=== PATIENT | female | born 1940 | race Caucasian/White ===

== ENCOUNTER 2018-01-16 21:53 | Emergency (ER) | payer MEDICARE, OTHER ==
--- NOTE | 2018-01-16 22:09 | Emergency Department Record ---
History of Present Illness - General Chief Complaint: General Stated Complaint: ALTERED SPEECH Time Seen by Provider: 01/16/18 21:54 Source: Patient Mode of Arrival: Ambulatory Limitations: No limitations - History of Present Illness Initial Comments: 77 yo female presents to ED for evaluation of slurred speech and difficulty writing her name. Patient denies extremity weakness globally, family member reports that her symptoms began just over 24 hours ago. Patient denies health problems at her baseline, however reports carotid endarectomy 2 years ago. Patient does not take any medications. Onset/Timin -: Hour(s) Location: Dysarthria, Right arm History of same: No Place: Home Severity: Moderate Improves With: None Worsens With: None On Anticoagulants: No Associated Symptoms: Denies other symptoms - [place] Coma Scale Eye Response: (4) Open spontaneously Motor Response: (6) Obeys commands Verbal Response: (5) Oriented [place] Total: 15 - Related Data Home Medications: Home Medications Medication Instructions Recorded Confirmed Last Taken No Home Med [NO HOME MEDS] 01/16/18 01/16/18 Unknown Allergies/Adverse Reactions: Allergies Allergy/AdvReac Type Severity Reaction Status Date / Time No Known Drug Allergies Allergy Verified 01/16/18 22:01 Review of Systems Constitutional: Denies: Chills, Fever, Malaise, Night sweats Eyes: Denies: Eye discharge, Eye pain ENT: Denies: Congestion, Ear pain, Epistaxis Respiratory: Denies: Cough, Dyspnea Cardiovascular: Denies: Chest pain, Dyspnea on exertion Endocrine: Denies: Fatigue, Heat or cold intolerance Gastrointestinal: Denies: Abdominal pain, Nausea, Vomiting Genitourinary: Denies: Incontinence, Retention Musculoskeletal: Denies: Arthralgia, Back pain, Gout, Joint swelling Skin: Denies: Bruising, Change in color Neurological: Reports: Other (dysarthria). Denies: Abnormal gait, Confusion, Headache, Seizure Psychiatric: Denies: Anxiety Hematological/Lymphatic: Denies: Anemia, Blood Clots Physical Exam - General General Appearance: Alert, Oriented x3, Cooperative, Mild distress Limitations: No limitations - Head Head exam: Atraumatic, Normocephalic, Normal inspection Head exam detail: negative: Abrasion, Contusion, Fischer's sign, General tenderness, Hematoma, Laceration - Eye Eye exam: Normal appearance. negative: Conjunctival injection, Periorbital swelling, Periorbital tenderness, Scleral icterus - ENT Ear exam: negative: Auricular hematoma, Auricular trauma Nasal Exam: negative: Active bleeding, Discharge, Dried blood, Foreign body Mouth exam: negative: Drooling, Laceration, Muffled voice, Tongue elevation - Neck Neck exam: Normal inspection. negative: Meningismus, Tenderness - Respiratory Respiratory exam: Normal lung sounds bilaterally. negative: Rales, Respiratory distress, Rhonchi, Stridor - Cardiovascular Cardiovascular Exam: Regular rate, Normal rhythm, Normal heart sounds - GI/Abdominal GI/Abdominal exam: Soft. negative: Rebound, Rigid, Tenderness - Rectal Rectal exam: Deferred - exam: Deferred - Extremities Extremities exam: Normal inspection. negative: Calf tenderness, Pedal edema, Tenderness - Back Back exam: Denies: CVA tenderness (R), CVA tenderness (L) - Neurological Neurological exam: Alert, CN II-XII intact, Normal gait, Oriented X3, Other ( Dysarthria and difficulty with fine-motor of the RUE) - Psychiatric Psychiatric exam: Normal affect, Normal mood - Skin Skin exam: Normal color. negative: Abrasion Type of lesion: negative: abrasion Course - Reevaluation(s) Reevaluation #1: 01/16/18 22:06 Patient was seen and examined, CT scanner is currently down and ICH cannot be excluded. Per family request, [facility] contacted for transfer. Patient is refusing ambulance transport at this time, verbalizes understanding of the risk of worsening of her condition (including , permanent impairment). Reevaluation #2: 01/16/18 22:16 Case was discussed with Dr. Rodas, will accept patient for transfer and CVA evaluation. Will hold ASA as ICH cannot be excluded at this time. Disposition Disposition: Transfer Clinical Impression: Neurological deficit present, PVD (peripheral vascular disease) Disposition: Acute Care Hospital Transfer Transfer To: [facility] Reason For Transfer: CT imaging, CVA evaluation Accepting Physician: EMEKA Time Discussed w/Accepting Physician: 22:09 Condition: (2) Stable Forms: Patient Portal Access Time of Disposition: 22:09 Quality - Quality Measures Quality Measures: N/A - Blood Pressure Screening Does Patient Have Any of the Following: No Blood Pressure Classification: Hypertensive Reading Systolic Measurement: 147 Diastolic Measurement: 94 Screening for High Blood Pressure: < First Hypertensive BP, F/U Documented > [ G8950] First Hypertensive Follow-up Interventions: Referral to alternative/primary care provider.
== END 2018-01-16 22:20 | disposition short-term general hospital (02) ==
LOC: ER 21:53
DX: I73.9 Peripheral vascular disease, unspecified (principal); R47.81 Slurred speech; R29.818 Other symptoms and signs involving the nervous system
CPT/HCPCS: 99284

== ENCOUNTER 2018-10-01 09:30 | Inpatient (IN) | payer MEDICARE, OTHER ==
[2018-10-04] MEDS ORDERED: FAMOTIDINE 20MG TABLET PO ONE (06:00)
[2018-10-04] MEDS ORDERED: ACETAMINOPHEN 1,000 MG/100 ML BTL IV ONE (06:00)
[2018-10-04] MEDS ORDERED: MECLIZINE 25 MG TABLET PO ONE (06:00)
[2018-10-04] MEDS ORDERED: VANCOMYCIN HCL 1,000 MG in DEXTROSE 5 % IN WATER 250 ML IVPB ONE ×2 (06:00)
[2018-10-04] MEDS ORDERED: METOCLOPRAMIDE 10 MG TABLET PO ONE (06:00)
[2018-10-04 06:39] LABS: ABO GROUP AB; RH TYPE POSITIVE
[2018-10-04 06:56] LABS: ANTIBODY SCREEN NEGATIVE (NEGATIVE)
[2018-10-04] MEDS ORDERED: METOCLOPRAMIDE HCL 10 MG/2 ML VIAL IVP PRN (08:13)
[2018-10-04] MEDS ORDERED: ACETAMINOPHEN 325 MG TAB PO PRN (08:13)
[2018-10-04] MEDS ORDERED: KETOROLAC 30 MG/ML VIAL IVP PRN ×2 (08:13)
[2018-10-04] MEDS ORDERED: ZOLPIDEM TARTRATE 5 MG TABLET PO PRN (08:13)
[2018-10-04] MEDS ORDERED: ACETAMINOPHEN W/ CODEINE 300MG/60MG TABLET PO PRN (08:13)
[2018-10-04] MEDS ORDERED: TRAMADOL HCL 50 MG TABLET PO PRN ×2 (08:13)
[2018-10-04] MEDS ORDERED: HYDROMORPHONE HCL 2 MG/ML VIAL IM PRN ×2 (08:13)
[2018-10-04] MEDS ORDERED: AL HYDROX/MAG HYDROX 30ML UD PO PRN (08:13)
[2018-10-04] MEDS ORDERED: HYDROCODONE/APAP 7.5/325MG TABLET PO PRN ×2 (08:13)
[2018-10-04] MEDS ORDERED: HYDROCODONE/APAP 5/325MG TABLET PO PRN ×2 (08:13)
[2018-10-04] MEDS ORDERED: ONDANSETRON HCL IV 4 MG/2 ML VIAL IVP PRN (08:13)
[2018-10-04] MEDS ORDERED: MAGNESIUM HYDROXIDE 30 ML UDC PO PRN (08:13)
[2018-10-04] MEDS ORDERED: ACETAMINOPHEN W/ CODEINE 300MG/30MG TABLET PO PRN ×2 (08:13)
[2018-10-04] MEDS ORDERED: DIPHENHYDRAMINE HCL 25 MG CAPSULE PO PRN (08:13)
[2018-10-04] MEDS ORDERED: BISACODYL 10 MG SUPP RC PRN (08:13)
[2018-10-04] MEDS ORDERED: PROMETHAZINE HCL 12.5 MG in 0.9 % SODIUM CHLORIDE 100ML 50 ML IVPB PRN (08:13)
[2018-10-04] MEDS ORDERED: NALOXONE 0.4 MG/1 ML VIAL IVP PRN (08:13)
[2018-10-04] MEDS ORDERED: DEXTROSE 5 % AND 0.9 % NACL 1,000 ML IV PRN (10:30)
--- NOTE | 2018-10-04 13:37 | Rehab Evaluation ---
Patient Information - Patient Information Diagnosis: R Hip OA Ordered Treatment: PT Evaluate and Treat Status: Initial Evaluation Surgery: Yes (R THR) Date of Surgery: 10/04/18 Past Medical/Surgical Hx: PAST MEDICAL/SURGICAL HISTORY Past Surgical History carotid artery hip replacement left 2013 hysterectomy left hand/ wrist cervical fusion appy tonsilectomy PMH - Respiratory Hx Respiratory Disorders Yes Hx Bronchitis Yes: in npast PMH - Cardiovascular Hx Cardiovascular Disorders No Exercise Tolerance Fair Hx Transient Ischemic Attacks Yes: affected speech no residual (TIA) Comment: pt fell and fx pelvis in July 2018 healing from that PMH - Neuro Hx Neurological Disorders Yes Hx Transient Ischemic Attacks Yes: affected speech no residual (TIA) PMH - GI Hx Gastrointestinal Disorders Yes Hx Weight Loss/Weight Gain Yes: 25 lb wt loss over last yr after of spouse PMH - Hx Genitourinary Disorders No PMH - Endocrine Hx Endocrine Disorders No Hx Diabetes No Hx Thyroid Disease No PMH - Musculoskeletal Hx Musculoskeletal Disorders Yes Hx Arthritis Yes: right hip hands Hx Osteoporosis Yes Comment: recent fx pelvis PMH - Psych Hx Psychiatric Problems Yes Hx Depression Yes: after spouse PMH - Hematology/Oncology Hx Hematology/Oncology Yes Disorders Hx Anemia Yes: mild Hx Cancer Yes: cervical? had hyst Premorbid Status: Detail (Prior to surgery the patient was independent with all mobility.) Social History: Detail (The patient lives alone in a one story house with 2 steps at the enterance and two handrails. The patient's bathroom is equipped with a walk in shower with a shower seat and a standard height toilet with grab bars. The patient has a standard walker, a 4 wheeled walker, standard can, commode, sheelchair and manager biologics.) Precautions: [place], Fall, Other (THR precautions.) - Time With Patient Total Time Spent With Patient (Min): 30 Treatment Procedures: Detail (Initial Evaluation, gait training) Subjective Information - Subjective Information Per Patient (The patient had no complaints of pain.) Objective Data - Mental Status Patient Orientation: Oriented x3 - Visual Perception Appears within normal limits for therapeutic activities - ROM Not within normal limits (The patient's R hip is within THR precautions.) - Strength/Tone Not within normal limits (The patient's R LE strength was not tested secondary s /p surgery but is functional ie: the patient is able to lift LE out bed. The patient's L LE strength is generally 4+ to 5/5.) - Bed Mobility Independent (The patient was independent with supine to and from sit transfer and scooting up in bed.) - Transfers Independent (The patient is independent with sit to and from stand transfer) - Balance Balance Sitting: Good Balance Standing: Good - Sensation Intact - Gait Detail (The patient ambulated with front wheeled walker a distance of 22 feet x 1 WBAT on the R LE. The patient declined to ambulate in the hallway.) Therapy Assessment - Therapy Assessment Detail (The patient was independent with bed mobility, transfers and ambulation. Feel the patient will progress well with mobility.) Patient Education - Patient Education Teaching Topic: Exercise/Activity (The patient completed a HEP of gluteal sets, ankle pumps, quad sets, hamstring sets, supine hip abduction, hip flexion.) Response: Return Demonstration Teaching Method: Demonstration, Handout Teaching Recipient: Patient Barriers To Learning: Age Related Problem List - Problem List Physical Therapy Problem List: Detail (1) Decreased R LE strength) Goals - Goals Physical Therapy Goals: The patient will ambulate on stairs with supervision for safety using proper technique. Prognosis - Prognosis Good Plan - Plan Physical Therapy Plan: PT 1-2 sessions for gait training on stairs.
[2018-10-04] MEDS: DOCUSATE SODIUM 100 MG CAPSULE PO SCH ×2 (14:44→21:19)
[2018-10-04] MEDS ORDERED: PROPOFOL 10 MG/ML VIAL IV ONE (14:47)
[2018-10-04] MEDS ORDERED: EPHEDRINE SULFATE 50 MG/ML ML IV ONE (14:47)
[2018-10-04] MEDS ORDERED: MIDAZOLAM HCL 2MG/2ML VIAL IV ONE (14:47)
[2018-10-04] MEDS ORDERED: KETAMINE HCL 100MG/1ML VIAL INJ ONE (14:47)
[2018-10-04] MEDS ORDERED: BUPIVACAINE 0.5% W/EPI MPF 30 ML VIAL IVP ONE ×2 (14:51→15:00)
[2018-10-04] MEDS ORDERED: VANCOMYCIN HCL 1 GM VIAL IVPB ONE ×2 (14:51→15:00)
[2018-10-04] MEDS ORDERED: TRANEXAMIC ACID 1,000 MG/10 ML ML IV ONE ×2 (14:51→15:00)
[2018-10-04] MEDS: FERROUS SULFATE 325 MG TAB PO SCH ×2 (14:54→21:19)
[2018-10-04] MEDS ORDERED: BUPIVACAINE LIPOSOME 266MG/20ML VIAL IV ONE (15:00)
[2018-10-04] MEDS: VANCOMYCIN HCL 1,000 MG in DEXTROSE 5 % IN WATER 250 ML IVPB SCH ×2 (18:03)
[2018-10-04] MEDS: ACETAMINOPHEN W/ CODEINE 300MG/60MG TABLET PO PRN ×2 (19:29→23:59)
--- NOTE | 2018-10-04 20:24 | Operative Note ---
DATE OF SURGERY: 10/04/2018 PREOPERATIVE DIAGNOSIS: End-stage right hip arthrosis. POSTOPERATIVE DIAGNOSIS: End-stage right hip arthrosis. OPERATION: Right total hip arthroplasty. SURGEON: Erasto Monique M.D. ANESTHESIA: Spinal. Liz Sterling CRNA. COMPLICATIONS: None. BLOOD LOSS: 150 mL. OPERATIVE FINDINGS: Ohdk-ms-alps hip arthrosis. COMPONENTS PLACED: 2 gm Vancomycin, [employer]son [employer]hew cemented Synergy II total hip arthroplasty system. INDICATIONS FOR OPERATION: This is a 78-year-old female who has had persistent pain and dysfunction in her hip. She is status post left hip arthroplasty and is now scheduled for the right. I explained the risks and benefits to her in detail for her diagnosis and procedures including but not limited to; infection , nerve injury, vessel injury, persistent pain, persistent numbness and tingling in her hip, periprosthetic fracture, need for resection arthroplasty should the components become infected or loosened, nerve injury, vessel injury, blood clot, leg length discrepancy, need for further procedures, need for anticoagulation to prevent blood clots and risks associated with these medications. All of her questions were answered. Rehab and course were outlined and she agreed to proceed. PROCEDURE: The patient was brought to the O.R. and placed in the left lateral decubitus position. Her right hip and lower extremity were prepped and draped in the usual sterile fashion, prepped again with ChloraPrep after it was draped. Intraoperative time-out was performed. Next, a posterior approach was marked over the hip using an incision-marking template and infiltrated with 0.5% Marcaine with Epinephrine. The skin and subcutaneous tissues were dissected down. Gluteal fascia was split longitudinally and the subgluteal plane was bluntly dissected. A self-retainer was brought in. I identified the sciatic nerve and this was carefully protected at all times. The short external rotators were released. The capsule was incised and then we dislocated the femoral head. It was completely arthritic with [id number] hip arthrosis. We resected the femoral head about 1.5 cm above the lesser trochanter and inserted the boxed osteotome and then started reaming by hand with an 8 mm reamer working in 1 mm increments up to a size 14, as that's the size she had on the previous side. We started broaching with a 12 mm in 15 degrees of anteversion, and then a 13 and then a 14 , we calcar planed with the 12 and then the 13 and had a good fit. Attention was turned to the acetabulum. We released the capsule anteriorly. We placed a retractor there. We placed a retractor superiorly and then an inferior two-prong retractor on the inferior acetabulum. We removed the capsule and labrum peripherally. Next, we started reaming working in 1 mm increments in 45 degrees of inclination and 20 degrees of anteversion until we reamed up to a size 49; she had a previous 50 on the other side. We trialed a 50 shell and it fit nicely. We inserted the real acetabular shell using the helicopter guide in 45 degrees of inclination and 20 degrees of anteversion and drilled a posterior central superior quadrant screw hole. We inserted a 40 mm screw. It had good purchase. Next, we did a trial reduction. The best combination for range of motion, stability, and leg lengths with a high-offset size 14 stem with a 20 degree hooded liner. This allowed for flexion to 90 and internal rotation to 80 before the hip dislocated, symmetric leg lengths, stability with extension in external rotation, and good abductor tension. Next, we removed all trial components. We changed gloves. We irrigated all bony surfaces copiously with pulse lavage and antibiotic solution. We capped the other two screw holes and then placed the centrally threaded screw cap. We impacted the real 20 degree hooded high-crosslinked polyethylene liner with the downing in the posterior superior quadrant. We impacted that down to verify it was interlocking. We previously mixed cement. We placed the cement restrictor in the femoral canal and injected the cement with third generation cement technique. We removed the suction catheter and then inserted the real femoral stem until the collar was flush with the medial calcar in 15 degrees of anteversion and held it there until the cement hardened. We cleaned and dried the trunnion and impacted down the real [place] femoral head component and we re-reduced the hip. Final range revealed the same. We irrigated copiously. We repaired the gluteal fascia with running #2 Quill suture. Irrigated again and closed the skin deep with #2-0 Vicryl. We previously injected deep to superficial, protecting the sciatic nerve. We injected the short external rotators, deep capsule, and gluteal fascia and working out superficially to the subcutaneous with our 0.5% Marcaine with Epinephrine, 2 gm tranexamic acid, and Exparel mixture. We closed the skin with #2-0 Vicryl and sterile dressing was applied. The dressing will changed prior to discharge to a POOJA dressing. The patient tolerated the procedure well. No intraoperative complications. All sponge, needle, and blade counts were correct. Recovery Room stable, neurovascularly intact. She will be discharged to the Floor and will be admitted overnight and discharged tomorrow. She will follow-up in two weeks. cc: Primary Care Physician JOB NUMBER: [id number] MTDD
[2018-10-05] MEDS: VANCOMYCIN HCL 1,000 MG in DEXTROSE 5 % IN WATER 250 ML IVPB SCH ×2 (06:09)
[2018-10-05 06:46] LABS: HEMATOCRIT 38.1 % (35.0-47.0); HEMOGLOBIN 12.6 gm/dl (11.6-16.0)
[2018-10-05] MEDS: ACETAMINOPHEN W/ CODEINE 300MG/60MG TABLET PO PRN ×2 (08:16→13:53)
[2018-10-05] MEDS: DOCUSATE SODIUM 100 MG CAPSULE PO SCH (09:19)
[2018-10-05] MEDS: FERROUS SULFATE 325 MG TAB PO SCH (09:19)
--- NOTE | 2018-10-05 09:59 | Rehab Evaluation ---
Patient Information - Patient Information Diagnosis: R Hip OA Ordered Treatment: OT Evaluate and Treat Status: Initial Evaluation Surgery: Yes (R THR) Date of Surgery: 10/04/18 Past Medical/Surgical Hx: PAST MEDICAL/SURGICAL HISTORY Past Surgical History carotid artery hip replacement left 2013 hysterectomy left hand/ wrist cervical fusion appy tonsilectomy PMH - Respiratory Hx Respiratory Disorders Yes Hx Bronchitis Yes: in npast PMH - Cardiovascular Hx Cardiovascular Disorders No Exercise Tolerance Fair Hx Transient Ischemic Attacks Yes: affected speech no residual (TIA) Comment: pt fell and fx pelvis in July 2018 healing from that PMH - Neuro Hx Neurological Disorders Yes Hx Transient Ischemic Attacks Yes: affected speech no residual (TIA) PMH - GI Hx Gastrointestinal Disorders Yes Hx Weight Loss/Weight Gain Yes: 25 lb wt loss over last yr after of spouse PMH - Hx Genitourinary Disorders No PMH - Endocrine Hx Endocrine Disorders No Hx Diabetes No Hx Thyroid Disease No PMH - Musculoskeletal Hx Musculoskeletal Disorders Yes Hx Arthritis Yes: right hip hands Hx Osteoporosis Yes Comment: recent fx pelvis PMH - Psych Hx Psychiatric Problems Yes Hx Depression Yes: after spouse PMH - Hematology/Oncology Hx Hematology/Oncology Yes Disorders Hx Anemia Yes: mild Hx Cancer Yes: cervical? had hyst Premorbid Status: Detail (Prior to surgery the patient was independent with all mobility, ADLs and IADLs.) Social History: Detail (The patient lives alone in a one story house with 2 steps at the entrance and two handrails. The patient's bathroom is equipped with a walk in shower with a shower seat and a standard height toilet with grab bars. The patient has a standard walker, a 4 wheeled walker, standard cane, commode, wheelchair, long shoe horn and optometrist owner. Her granddaughter will be staying with her for a short time.) Precautions: [place], Fall, Other (THR precautions.) - Time With Patient Total Time Spent With Patient (Min): 40 Treatment Procedures: Detail (OT eval low complexity) Subjective Information - Subjective Information Per Patient Objective Data - Pain Pain Present: No - Mental Status Patient Orientation: Oriented x3 - Visual Perception Appears within normal limits for therapeutic activities - ROM Within normal limits (Marcos UE AROM WNL) - Strength/Tone Within normal limits (Marcos UE strength WNL) - Coordination Appears within normal limits for therapeutic activities - Bed Mobility Independent (Ind with supine to sit and sit to supine) - Transfers Independent (Ind with sit to stand from EOB) - Balance Balance Sitting: Good Balance Standing: Good - Sensation Intact - ADL's/IADL's Detail (Pt educated and able to demonstrate learning of modified LE dressing techniques using optometrist owner including donning pants and slipper. Pt reports she will not be wearing socks. Reviewed kitchen and shower safety and modifications , pt verbalizes learning.) Therapy Assessment - Therapy Assessment Detail (Pt is Ind with modified LE dressing techniques.) Problem List - Problem List Physical Therapy Problem List: Detail (1) Decreased R LE strength) Occupational Therapy Problem List: Detail (No current IP OT problems identified. ) Goals - Goals Physical Therapy Goals: The patient will ambulate on stairs with supervision for safety using proper technique. Occupational Therapy Goals: No current IP OT goals identified. Prognosis - Prognosis Good Plan - Plan Physical Therapy Plan: PT 1-2 sessions for gait training on stairs. Occupational Therapy Plan: No further IP OT recommended. Thank you for this referral.
[2018-10-05] MEDS ORDERED: RIVAROXABAN 10 MG TABLET PO SCH (10:00)
[2018-10-05] MEDS ORDERED: CELECOXIB 100 MG CAPSULE PO SCH (10:00)
--- NOTE | 2018-10-05 10:01 | Physical Therapy Tx Note ---
Physical Therapy Tx Note - Treatment Note Tolerated: Good Total Time Spent With Patient: 20 Physical Therapy Tx Note: Detail (The patient was in bed when PT arrived and had no complaints of pain. The patient ambulated independently WBAT on the R LE with standard walker a distance of 100 feet x 1 . The patient ambulated on stairs with use of one railing using proper technique with supervision for safety only. The patient exhibits increased R foot inversion and hip internal rotation when ambulating but is able to correct position when cued. The patient reports that she has always ambulated that way. The patient has completed all inpatient goals and is discharged from inpatient PT.) Physical Therapy Problem List: Detail (1) Decreased R LE strength) Physical Therapy Goals: The patient will ambulate on stairs with supervision for safety using proper technique. (Goal Met) Physical Therapy Plan: The patient has met all inpatient PT goals. The patient is to receive Home PT.
--- NOTE | 2018-10-05 10:02 | RADIOLOGY REPORT ---
EXAM: RIGHT HIP HISTORY: POSTOP. TECHNIQUE: A single AP view of the right hip was performed. FINDINGS: Patient is postop right hip arthroplasty. There are fracture deformities of the right superior and inferior pubic rami. There is likely fracture deformity of the left inferior pubic ramus. Underlying osteopenia. IMPRESSION: 1. RIGHT HIP PROSTHESIS IN PLACE. 2. FRACTURE DEFORMITY OF THE RIGHT SUPERIOR AND INFERIOR PUBIC RAMUS. PROBABLE FRACTURE DEFORMITY OF THE LEFT INFERIOR RAMUS. JOB NUMBER: [id number] [facility]
== END 2018-10-05 14:40 | disposition home or self-care (01) | DRG 470 ==
LOC: MEDSURG 10-04 05:45
PROVIDERS: ADMIT Orthopaedic Surgery; ATTEND Orthopaedic Surgery
PROC: 0SR9069 Replacement of Right Hip Joint with Oxidized Zirconium on Polyethylene Synthetic Substitute, Cemented, Open Approach (ICD-10-PCS; principal; 2018-10-04 08:00)
DX: M16.11 Unilateral primary osteoarthritis, right hip (principal); Z86.73 Personal history of transient ischemic attack (TIA), and cerebral infarction without residual deficits; F17.210 Nicotine dependence, cigarettes, uncomplicated
CPT/HCPCS: 85014; 85018; 86850; 86900; 86901; 97530; J7060